=== PATIENT | male | born 1995 | race Caucasian/White ===

== ENCOUNTER 2017-04-01 08:08 | Emergency (ER) | payer OTHER ==
[~2017-04-01] VITALS: Ht 188 cm; Wt 85.1 kg
[~2017-04-01 08:08] MED LIST: CLC150 PO; KETO10TA PO
[2017-04-01 08:11] VITALS: TEMP 36.5; Ht 188 cm; Wt 85.1 kg
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
[2017-04-01 10:06] VITALS: BP 112/67; PULSE 67; O2SAT 100
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
== END 2017-04-01 10:07 | disposition home or self-care (01) ==
LOC: C.EDB 08:09
DX: M25.511 Pain in right shoulder (principal); V47.5XXA Car driver injured in collision with fixed or stationary object in traffic accident, initial encounter; M54.5 Low back pain; G89.29 Other chronic pain; F17.220 Nicotine dependence, chewing tobacco, uncomplicated